=== PATIENT | female | born 1990 | race African-American/Black ===

== ENCOUNTER 2017-08-06 23:13 | Emergency (ER) | payer MEDICAID ==
[~2017-08-06 23:13] MED LIST: ACE-2; PREN1CAP7 PO
--- NOTE | 2017-08-07 00:12 | PD ---
HPI Chief Complaint contractions Date Seen: Aug 07, 2017 Travel History International Travel<30 Days: No Contact w/Intl Traveler<30Days: No Known Affected Area: No History of Present Illness HPI 26 yo @ 39w4d dated by a 29 week US. Patient has been seen at [facility], she had late PNC had 3 visits. She obtained labs at [facility], but had not been back to the clinic to get results. She admits to THC usage daily. Tonight she presents "for a cervical check". She reports only occasional UC. No VB, LOF +FM. History Past Medical History Medical History: Denies Significant Hx Obstetric History Obstetric History x 3, two term and one @ 34 weeks Past Surgical History Surgical History: No Previous Surgery Family History Family History: Negative Social History Alcohol Use: No Tobacco Use: No Substance Abuse: Yes Allergies-Medications (Allergen,Severity, Reaction): Coded Allergies: No Known Allergies (Unverified , 04/22/17) Home Meds Active Scripts W/O Vit A W/ Fe Fumar (Citranatal [place]) 27-1-260 Mg Cap, 1 CAP PO DAILY for Nutritional Supplement, #30 CAP 11 Refills Prov:Yolanda Dodson 06/25/17 RICARDO Knee Brace Medium (RICARDO Knee Brace Medium) 1 Mis Mis, 1 EA .ROUTE DIRECTED , #1 EA 0 Refills Prov:Po Ribeiro MD, R3 12/10/16 Review of Systems General / Constitutional: No: Fever, Chills Eyes: No: Blurred Vision HENT: No: Headaches, Lightheadedness Cardiovascular: No: Chest Pain or Discomfort, Palpitations Respiratory: No: Cough, Short of Breath Gastrointestinal: Abdominal Pain (occasional UC), No: Nausea, Vomiting, Loss of Appetite Genitourinary: No: Urgency, Frequency, Dysuria, Discharge, Vaginal Bleeding Musculoskeletal: No: Limited ROM, Weakness Skin: No Rash, Itching, Dryness, No Lesions Neurologic: No: Focal Abnormalities, Coordination Problem Physical Exam Narrative GENERAL: Well-nourished, well-developed patient. NAD SKIN: Warm and dry. HEAD: Normocephalic and atraumatic. EYES: No scleral icterus. No injection or drainage. ENT: No nasal drainage noted. Mucous membranes pink. Airway patent. NECK: trachea midline. No JVD. CARDIOVASCULAR: Regular rate RESPIRATORY: No accessory muscle use. ABDOMEN/GI: Abdomen soft, non-tender, no rebound, no guarding Gravid GENITOURINARY: External Genitalia: intact and normal in appearance BUS glands: [-] SVE: 1-2/50/-4 FHT's: Category: I Baseline: 125 Reactive: + Variability: mod Decels: [-] EXTREMITIES: No cyanosis or edema. BACK: Nontender without obvious deformity. normal ROM and gait NEUROLOGICAL: Awake and alert. Motor and sensory grossly within normal limits. Normal speech. Data Data Vital Signs Reviewed: Yes Orders Orders Vital Signs (Adult) .ON ADMISSION (08/06/17 23:57) ^ Labor Status (08/06/17 23:57) Urinalysis - C+S If Indicated (08/06/17 23:57) ^ Non Stress Test (08/06/17 23:57) ^ Hydration (08/06/17 23:57) Ob/Psych Drug Screen, Urine (08/06/17 23:57) Group B Strep Pcr (Rapid) (08/06/17 23:57) Gc And Chlamydia Pcr (08/06/17 23:57) Labs Laboratory Tests Test 08/06/17 23:54 Urine Color YELLOW (YELLW/STRAW) Urine Turbidity HAZY (CLEAR) Urine pH 7.0 (5.0-8.5) Urine Specific [place] 1.023 (1.002-1.035) Urine Protein TRACE mg/dL (NEG-TRACE) Urine Glucose (UA) NEG mg/dL (NEG) Urine Ketones NEG mg/dL (NEG) Urine Occult Blood NEG (NEG) Urine Nitrite NEG (NEG) Urine Bilirubin NEG (NEG) Urine Urobilinogen 2.0 MG/DL (LESS THAN Urine Leukocyte Esterase LARGE (NEG) Urine RBC 4 /hpf (0-3) Urine WBC 29 /hpf (0-5) Urine Squamous Epithelial Cells 8 /hpf (0-5) Urine Bacteria OCC /hpf (NONE) Urine Mucus FEW /lpf (OCC) Urine Trichomonas RARE (NONE) Microscopic Urinalysis Comment CULTURE INDICATED Urine Opiates Screen NEG (NEG) Urine Barbiturates Screen NEG (NEG) Urine Amphetamines Screen NEG (NEG) Urine Benzodiazepines Screen NEG (NEG) Urine Cocaine Screen NEG (NEG) Urine Cannabinoids Screen POS (NEG) Chlamydia trachomatis DNA (PCR) NOT DETECTED (NOT DETECT) Neisseria gonorrhoeae DNA (PCR) NOT DETECTED (NOT DETECT) Group B Streptococcus (PCR) POSITIVE (NEGATIVE) MDM Medical Record Reviewed: Yes Narrative Course / MDM 39 weeks Late/Limited PNC Poor dating False labor CAT I FHT GBS obtained UA, GC/Ch obtained Plan D/c home Patient to call for DRE at [facility] today Labor precautions Diagnosis Diagnosis: Primary Impression: False labor after 37 weeks of gestation without delivery Additional Impression: 39 weeks gestation of Disposition: 01 DISCHARGE HOME Condition: Stable Patient Instructions: General Instructions, Having Your Baby: The Labor Process (GEN), Movement (ED), Abdominal Pain in (ED) Departure Forms: Tests/Procedures Kayleen Davis MD Aug 07, 2017 00:12
[2017-08-07 00:15] LABS: BACTERIA, URINE OCC /hpf; BLOOD, URINE NEG (NEG); COMMENT (UR) CULTURE INDICATED; CULTURE IF INDICATED CULTURE INDICATED; GLUCOSE,URINE NEG (NEG); KETONE, URINE NEG (NEG); MUCUS URINE FEW /lpf (OCC); NITRITE,URINE NEG (NEG); SQUAMOUS EPITHELIAL CELL URINE 8 /hpf (0-5); URINE COLOR YELLOW (YELLW/STRAW)
[2017-08-07 03:22] LABS: CHLAMYDIA PCR NOT DETECTED (NOT DETECT); NEISSERIA PCR NOT DETECTED (NOT DETECT)
[2017-08-11 09:40] LABS: BATH SALTS (MDPV) UR NEG (NEG); ECSTASY (MDMA) UR NEG (NEG); GABAPENTIN UR NEG (NEG); HEROIN (6-ACETYLMORPHINE) UR NEG (NEG); HYDROMORPHONE U NEG (NEG); K2 SPICE UR NEG (NEG); OBMETHADONE UR NEG (NEG); PHENCYCLIDINE URINE NEG (NEG)
== END 2017-08-07 00:15 | disposition home or self-care (01) ==
LOC: HOBED 23:13
DX: O47.1 False labor at or after 37 completed weeks of gestation (principal); B96.89 Other specified bacterial agents as the cause of diseases classified elsewhere; Z3A.39 39 weeks gestation of pregnancy; Z79.899 Other long term (current) drug therapy
CPT/HCPCS: 59025; 80307; 81001; 87086; 87150; 87491; 87591; 99283; G0481